=== PATIENT | female | born 1960 ===

== ENCOUNTER 2020-10-03 11:21 | Emergency (ER) | payer MEDICARE, MEDICAID ==
[2020-10-03] MEDS ORDERED: Sodium Chloride 0.9% 2.5 ML Syringe FLUSH PRN (12:32)
[2020-10-03] MEDS ORDERED: Sodium Chloride 0.9% 10 ML Syringe FLUSH PRN (12:32)
== END 2020-10-03 13:30 | disposition left against medical advice (07) ==
LOC: MW.ED 11:21
DX: Z53.21 Procedure and treatment not carried out due to patient leaving prior to being seen by health care provider (principal)